=== PATIENT | female | born 1995 ===

== ENCOUNTER → 2017-10-23 | Outpatient (CLI) | payer OTHER ==
[~2017-10-23] MED LIST: Abreva2 GM TOP; BENZ100A PO; CEPH500 PO; IBUP600 PO; Macrobid 100 M100 MG PO; Pyridium100 MG PO; Veetids 500500 MG PO; Zovirax800 MG PO
[2017-10-24 07:47] LABS: Candida species (DNA Probe) Negative (NEGATIVE); G. vaginalis (DNA Probe) Positive (NEGATIVE); T. vaginalis (DNA Probe) Negative (NEGATIVE)
[2017-10-24 14:28] LABS: Source VAG/CERVIX
== END | disposition home or self-care (01) ==
LOC: LAB SHORT 15:08
PROVIDERS: Advanced Practice Midwife
DX: Z01.411 Encounter for gynecological examination (general) (routine) with abnormal findings (principal); Z11.3 Encounter for screening for infections with a predominantly sexual mode of transmission; N89.8 Other specified noninflammatory disorders of vagina
CPT/HCPCS: 87480; 87491; 87510; 87591; 87660; 87661; G0123

== ENCOUNTER 2019-08-27 08:30 | Emergency (ER) | payer OTHER ==
[~2019-08-27] VITALS: Ht 160 cm; Wt 70.3 kg
[2019-08-27 09:32] LABS: Source, Urine Voided
[2019-08-27 09:39] LABS: Appearance, Urine Hazy (Clear); Bilirubin, Urine Neg (Neg); Blood, Urine 5+ (Neg); Color, Urine Yellow (P-Yellow); Glucose Qualitative, Urine Neg (Neg); Ketones, Urine Neg (Neg); Leukocyte Esterase, Urine 2+ (Neg); Nitrite, Urine Neg (Neg); Protein, Urine 4+ (Neg); Specific Gravity, Urine 1.025 (1.003-1.022); Urobilinogen, Urine NORM (Normal)
[2019-08-27 09:55] LABS: Bacteria Mod /hpf; Mucus Light (0-Heavy); Squamous Epithelial Cells Few /hpf (Few); White Blood Cells, Urine 25-50 /hpf (0-5)
[2019-08-27] MEDS ORDERED: Pyridium200 MG PO (10:28)
[2019-08-27] MEDS ORDERED: Macrobid 100 M100 MG PO (10:28)
== END 2019-08-27 10:45 | disposition home or self-care (01) ==
LOC: ER 08:30
PROVIDERS: Emergency Medicine
DX: R30.0 Dysuria (principal); N92.6 Irregular menstruation, unspecified; F17.210 Nicotine dependence, cigarettes, uncomplicated
CPT/HCPCS: 81001; 81025; 87077; 87086; 87186; 99283

== ENCOUNTER 2024-09-20 08:23 | Emergency (ER) | payer OTHER ==
[~2024-09-20] VITALS: Ht 160 cm; Wt 72.6 kg
[~2024-09-20 08:23] MED LIST changes: +Pyridium200 MG PO
[2024-09-20 09:06] VITALS: BP 103/86
[2024-09-20 10:02] LABS: CORONAVIRUS COVID-19 AG Negative (NEGATIVE); INFLUENZA A AG Positive (NEGATIVE); INFLUENZA B AG Negative (NEGATIVE)
== END 2024-09-20 10:17 | disposition home or self-care (01) ==
LOC: ER 08:23
PROVIDERS: Student in an Organized Health Care Education/Training Program
DX: J10.1 Influenza due to other identified influenza virus with other respiratory manifestations (principal)
CPT/HCPCS: 87081; 87428-QW; 87430; 99283

== ENCOUNTER 2025-08-31 19:36 | Emergency (ER) | payer OTHER ==
[~2025-08-31] VITALS: Ht 162.6 cm; Wt 72.1 kg
[2025-08-31 19:47] VITALS: BP 112/80
== END 2025-08-31 20:43 | disposition home or self-care (01) ==
LOC: ER 19:36
DX: S93.402A Sprain of unspecified ligament of left ankle, initial encounter (principal); X50.1XXA Overexertion from prolonged static or awkward postures, initial encounter; F17.210 Nicotine dependence, cigarettes, uncomplicated; Z79.899 Other long term (current) drug therapy
CPT/HCPCS: 73610; 99283-25; A9270